=== PATIENT | male | born 1995 | race Caucasian/White ===

== ENCOUNTER 2017-06-09 12:03 | Inpatient (IN) | payer MEDICAID, OTHER ==
[~2017-06-09] VITALS: Ht 172.7 cm; Wt 58.7 kg
[2017-06-09 12:42] LABS: BASOPHILS % (AUTO) 0.3 % (0.0-2.0); EOSINOPHILS % (AUTO) 0.9 % (1.0-6.0); HEMOGLOBIN 16.7 g/dL (13.5-17.5); LYMPHOCYTES # (AUTO) 1.2 K/uL (1.0-4.8); LYMPHOCYTES % (AUTO) 18.5 % (22.0-44.0); MEAN CORPUSCULAR HEMOGLOBIN 29.6 pg (26.0-34.0); MEAN CORPUSCULAR HGB CONC 33.4 G/dL (31.0-37.0); MEAN CORPUSCULAR VOLUME 89 fL (80-100); MONOCYTES # (AUTO) 0.7 K/uL (0.1-1.0); MONOCYTES % (AUTO) 10.3 % (2.0-9.0); NEUTROPHILS # (AUTO) 4.6 K/uL (1.8-7.7); PLATELET COUNT (AUTO) 172 K/uL (150-450); RED BLOOD CELL COUNT(AUTO) 5.64 MIL/uL (4.50-5.90); RED CELL DISTRIBUTION WIDTH 13.6 % (11.5-14.5); WHITE BLOOD COUNT (AUTO) 6.6 K/uL (4.5-11.0)
[2017-06-09 12:50] LABS: ANION GAP 6 mmol/L (8-16); CALCIUM, TOTAL 9.2 mg/dL (8.8-10.5); CARBON DIOXIDE 31 mmol/L (22-29); CHLORIDE 105 mmol/L (98-107); CREATININE 0.95 mg/dL (0.60-1.30); GLOMERULAR FILTR. RATE CALC > 60 mL/min (>60); POTASSIUM 4.1 mmol/L (3.5-5.1); SODIUM SERUM 142 mmol/L (136-145); UREA NITROGEN, BLOOD 13 mg/dL (7-18)
[2017-06-09 12:58] LABS: ALANINE AMINOTRANSFERASE 21 U/L (12-78); ALBUMIN 4.4 g/dL (3.4-5.0); ASPARTATE AMINOTRANSFERASE 22 U/L (15-37); BILIRUBIN,TOTAL 0.3 mg/dL (0.1-1.0); TOTAL PROTEIN, SERUM 7.6 g/dL (6.4-8.2)
[2017-06-09] MEDS ORDERED: HALOPERIDOL 5 MG TABLET PO ONE (15:00)
[2017-06-09] MEDS ORDERED: LORazepam 2 MG TABLET PO ONE (15:00)
[2017-06-09] MEDS ORDERED: HALOPERIDOL 5 MG TABLET PO PRN (15:30)
[2017-06-09] MEDS ORDERED: ZOLPIDEM TARTRATE 10 MG TABLET PO PRN (15:30)
[2017-06-09] MEDS ORDERED: LORazepam 2 MG TABLET PO PRN (15:30)
[2017-06-09 20:33] VITALS: BP 108/66
[2017-06-10 08:00] VITALS: BP 116/69
[2017-06-10] MEDS ORDERED: BENZOCAINE/MENTHOL LOZENGE [8 LOZENGES/PACKET] MM PRN (09:00)
[2017-06-10] MEDS ORDERED: MAGNESIUM HYDROXIDE SUSPENSION 30 ML UDCUP PO PRN (09:00)
[2017-06-10] MEDS ORDERED: MAG HYDROX/AL HYDROX/SIMETH ES 30 ML SUSPENSION UDCUP PO PRN (09:00)
[2017-06-10] MEDS ORDERED: CloNIDine HCL 0.1 MG TABLET PO PRN (09:00)
[2017-06-10] MEDS ORDERED: ACETAMINOPHEN 325 MG TABLET PO PRN (09:00)
[2017-06-10] MEDS ORDERED: PETROLATUM,WHITE 71 GM JELLY TP PRN (09:00)
[2017-06-10] MEDS ORDERED: ONDANSETRON HCL 4 MG TABLET PO PRN (09:00)
[2017-06-10] MEDS ORDERED: LOPERAMIDE HCL 2 MG CAPSULE PO PRN (09:00)
[2017-06-10] MEDS ORDERED: IBUPROFEN 600 MG TABLET PO PRN (09:00)
[2017-06-10] MEDS ORDERED: ALBUTEROL SULFATE HFA 90 MCG/PUFF 8 GM INHALER IH PRN (09:00)
[2017-06-10] MEDS ORDERED: BACITRACIN 28.4 GM OINTMENT TP PRN (09:00)
[2017-06-10] MEDS: RisperiDONE 0.5 MG TABLET PO SCH ×2 (14:26→20:54)
[2017-06-10 16:58] VITALS: BP 116/68
[2017-06-11 06:27] VITALS: BP 120/72
[2017-06-11] MEDS: RisperiDONE 0.5 MG TABLET PO SCH ×2 (08:25→20:54)
[2017-06-11 08:30] VITALS: BP 117/74
[2017-06-11 16:52] VITALS: BP 98/59
[2017-06-12 07:00] VITALS: BP 110/65
[2017-06-12 08:00] VITALS: BP 121/75
[2017-06-12] MEDS: RisperiDONE 0.5 MG TABLET PO SCH (08:25)
[2017-06-12] MEDS ORDERED: RISP.5 PO (12:56)
== END 2017-06-12 16:00 | disposition home or self-care (01) | DRG 750 ==
LOC: EMS 12:04 → 3EI 19:19
DX: F20.0 Paranoid schizophrenia (principal); R45.851 Suicidal ideations; F12.10 Cannabis abuse, uncomplicated; Z72.0 Tobacco use
CPT/HCPCS: 99285; G0480

== ENCOUNTER 2017-08-22 13:12 | Inpatient (IN) | payer MEDICAID, OTHER ==
[~2017-08-22] VITALS: Ht 172.7 cm; Wt 60.8 kg
[~2017-08-22 13:12] MED LIST: RISP.5 PO
[2017-08-22] MEDS ORDERED: HALOPERIDOL LACTATE 5 MG/ML VIAL IM ONE (15:15)
[2017-08-22] MEDS ORDERED: LORazepam 2 MG/ML VIAL IM ONE (15:15)
[2017-08-22] MEDS ORDERED: DiphenhydrAMINE HCL 50 MG/ML VIAL IM ONE (15:15)
[2017-08-22 16:06] LABS: BASOPHILS % (AUTO) 0.4 % (0.0-2.0); EOSINOPHILS % (AUTO) 1.6 % (1.0-6.0); HEMATOCRIT 41.5 % (41-53); HEMOGLOBIN 14.2 g/dL (13.5-17.5); LYMPHOCYTES # (AUTO) 1.1 K/uL (1.0-4.8); LYMPHOCYTES % (AUTO) 17.4 % (22.0-44.0); MEAN CORPUSCULAR HEMOGLOBIN 30.3 pg (26.0-34.0); MEAN CORPUSCULAR HGB CONC 34.3 G/dL (31.0-37.0); MEAN CORPUSCULAR VOLUME 89 fL (80-100); MONOCYTES # (AUTO) 0.8 K/uL (0.1-1.0); MONOCYTES % (AUTO) 13.2 % (2.0-9.0); NEUTROPHILS # (AUTO) 4.2 K/uL (1.8-7.7); NEUTROPHILS % (AUTO) 67.4 % (40.0-70.0); PLATELET COUNT (AUTO) 174 K/uL (150-450); RED BLOOD CELL COUNT(AUTO) 4.69 MIL/uL (4.50-5.90); RED CELL DISTRIBUTION WIDTH 13.5 % (11.5-14.5); WHITE BLOOD COUNT (AUTO) 6.3 K/uL (4.5-11.0)
[2017-08-22 16:28] LABS: ANION GAP 5 mmol/L (8-16); CALCIUM, TOTAL 8.4 mg/dL (8.8-10.5); CARBON DIOXIDE 29 mmol/L (22-29); CHLORIDE 106 mmol/L (98-107); CREATININE 0.98 mg/dL (0.60-1.30); GLOMERULAR FILTR. RATE CALC > 60 mL/min (>60); POTASSIUM 3.8 mmol/L (3.5-5.1); SODIUM SERUM 140 mmol/L (136-145); UREA NITROGEN, BLOOD 12 mg/dL (7-18)
[2017-08-22 16:36] LABS: ALANINE AMINOTRANSFERASE 19 U/L (12-78); ALBUMIN 3.7 g/dL (3.4-5.0); ASPARTATE AMINOTRANSFERASE 21 U/L (15-37); BILIRUBIN,TOTAL 0.2 mg/dL (0.1-1.0); TOTAL PROTEIN, SERUM 6.6 g/dL (6.4-8.2)
[2017-08-22] MEDS ORDERED: HALOPERIDOL 5 MG TABLET PO PRN (20:45)
[2017-08-22] MEDS ORDERED: LORazepam 2 MG TABLET PO PRN (20:45)
[2017-08-22] MEDS ORDERED: ZOLPIDEM TARTRATE 10 MG TABLET PO PRN (20:45)
[2017-08-22 21:49] LABS: CHOL/HDL RATIO 3.1 (4.2-7.3)
[2017-08-23 08:07] LABS: APPEARANCE,URINE CLEAR (CLEAR); GLUCOSE, URINE (UA) NEGATIVE (NEGATIVE); KETONES,URINE NEGATIVE (NEGATIVE); LEUKOCYTE ESTERASE ,URINE NEGATIVE (NEGATIVE); OCCULT BLOOD,URINE NEGATIVE (NEGATIVE); PROTEIN,URINE NEGATIVE (NEGATIVE)
[2017-08-23 08:08] LABS: ADD UA MICROSCOPIC NO
[2017-08-23 21:40] VITALS: BP 116/63
[2017-08-24 08:24] VITALS: BP 118/71
[2017-08-24] MEDS: RisperiDONE 0.5 MG TABLET PO SCH (21:43)
[2017-08-24] MEDS ORDERED: IBUPROFEN 600 MG TABLET PO PRN (21:45)
[2017-08-24] MEDS ORDERED: ACETAMINOPHEN 325 MG TABLET PO PRN (21:45)
[2017-08-25] VITALS: BP 109/61
[2017-08-25 08:19] VITALS: BP 128/72
[2017-08-25] MEDS: RisperiDONE 0.5 MG TABLET PO SCH ×2 (09:21→20:15)
[2017-08-25 16:39] VITALS: BP 106/63
[2017-08-25 21:27] VITALS: BP 127/60
[2017-08-26 06:55] VITALS: BP 123/77
[2017-08-26] MEDS: RisperiDONE 0.5 MG TABLET PO SCH ×2 (08:29→20:07)
[2017-08-26 08:34] VITALS: BP 108/65
[2017-08-26 16:32] VITALS: BP 113/72
[2017-08-27 06:30] VITALS: BP 112/68
[2017-08-27] MEDS: RisperiDONE 0.5 MG TABLET PO SCH ×2 (08:10→20:26)
[2017-08-27] MEDS: SERTRALINE HCL 50 MG TABLET PO SCH (08:10)
[2017-08-27 08:47] VITALS: BP 117/65
[2017-08-27 16:33] VITALS: BP 121/74
[2017-08-28 05:18] VITALS: BP 117/72
[2017-08-28 08:16] VITALS: BP 121/82
[2017-08-28] MEDS: SERTRALINE HCL 50 MG TABLET PO SCH (08:55)
[2017-08-28] MEDS: RisperiDONE 0.5 MG TABLET PO SCH (08:55)
[2017-08-28] MEDS ORDERED: SERT50TA12 PO (12:05)
== END 2017-08-28 14:25 | disposition home or self-care (01) | DRG 750 ==
LOC: EMS 13:13 → EEVIPCON 13:13 → AHU 08-23 20:20 → B2S 08-24 21:02
PROVIDERS: ADMIT Psychiatry & Neurology Child & Adolescent Psychiatry; ATTEND Psychiatry & Neurology Child & Adolescent Psychiatry
DX: F20.0 Paranoid schizophrenia (principal); R00.1 Bradycardia, unspecified; F12.10 Cannabis abuse, uncomplicated; Z79.899 Other long term (current) drug therapy; Z72.0 Tobacco use
CPT/HCPCS: 96372; 99285; G0480

== ENCOUNTER 2017-08-31 22:59 | Inpatient (IN) | payer MEDICAID, OTHER ==
[~2017-08-31] VITALS: Ht 172.7 cm; Wt 62.2 kg
[~2017-08-31 22:59] MED LIST changes: +SERT50TA12 PO
[2017-08-31 23:26] LABS: BASOPHILS # (AUTO) 0.03 K/uL (0.00-0.20); BASOPHILS % (AUTO) 0.3 % (0.0-2.0); EOSINOPHILS # (AUTO) 0.16 K/uL (0.00-0.70); EOSINOPHILS % (AUTO) 1.79 % (1.0-6.0); HEMATOCRIT 44.1 % (41-53); LYMPHOCYTES # (AUTO) 1.8 K/uL (1.0-4.8); LYMPHOCYTES % (AUTO) 20.8 % (22.0-44.0); MEAN CORPUSCULAR HEMOGLOBIN 30.2 pg (26.0-34.0); MEAN CORPUSCULAR HGB CONC 34.1 G/dL (31.0-37.0); MEAN CORPUSCULAR VOLUME 89 fL (80-100); MONOCYTES % (AUTO) 11.4 % (2.0-9.0); NEUTROPHILS # (AUTO) 5.8 K/uL (1.8-7.7); NEUTROPHILS % (AUTO) 65.7 % (40.0-70.0); PLATELET COUNT (AUTO) 167 K/uL (150-450); RED BLOOD CELL COUNT(AUTO) 4.98 MIL/uL (4.50-5.90); RED CELL DISTRIBUTION WIDTH 13.4 % (11.5-14.5); WHITE BLOOD COUNT (AUTO) 8.8 K/uL (4.5-11.0)
[2017-08-31 23:33] LABS: ANION GAP 8 mmol/L (8-16); CALCIUM, TOTAL 8.7 mg/dL (8.8-10.5); CARBON DIOXIDE 27 mmol/L (22-29); CHLORIDE 104 mmol/L (98-107); GLOMERULAR FILTR. RATE CALC > 60 mL/min (>60); POTASSIUM 3.3 mmol/L (3.5-5.1); SODIUM SERUM 139 mmol/L (136-145); UREA NITROGEN, BLOOD 10 mg/dL (7-18)
[2017-08-31 23:38] LABS: ALANINE AMINOTRANSFERASE 21 U/L (12-78); ASPARTATE AMINOTRANSFERASE 17 U/L (15-37); BILIRUBIN,TOTAL 0.2 mg/dL (0.1-1.0); TOTAL PROTEIN, SERUM 6.9 g/dL (6.4-8.2)
[2017-09-01] MEDS ORDERED: HALOPERIDOL 5 MG TABLET PO PRN (01:00)
[2017-09-01] MEDS ORDERED: POTASSIUM CHLORIDE 10% 40 MEQ/30 ML LIQUID UDCUP PO ONE (01:45)
[2017-09-01 02:25] LABS: APPEARANCE,URINE CLEAR (CLEAR); GLUCOSE, URINE (UA) NEGATIVE (NEGATIVE); KETONES,URINE NEGATIVE (NEGATIVE); LEUKOCYTE ESTERASE ,URINE NEGATIVE (NEGATIVE); OCCULT BLOOD,URINE NEGATIVE (NEGATIVE); PROTEIN,URINE NEGATIVE (NEGATIVE)
[2017-09-01 02:28] LABS: ADD UA MICROSCOPIC NO
[2017-09-01 03:00] VITALS: BP 112/71
[2017-09-01] MEDS ORDERED: INFLUENZA VIRUS VACCINE QVS 2017-18 (3YR+)/PF 60 MCG/0.5 ML SYRINGE IM ONE (05:30)
[2017-09-01 08:47] VITALS: BP 114/72
[2017-09-01 09:31] LABS: CHOL/HDL RATIO 3.1 (4.2-7.3)
[2017-09-01] MEDS ORDERED: POTASSIUM CHLORIDE 20 MEQ ER TABLET PO ONE (10:00)
[2017-09-01] MEDS: LORazepam 2 MG TABLET PO PRN (10:12)
[2017-09-01] MEDS: SERTRALINE HCL 50 MG TABLET PO SCH (12:02)
[2017-09-01] MEDS: RisperiDONE 0.5 MG TABLET PO SCH ×2 (12:02→20:21)
[2017-09-01 16:00] VITALS: BP 117/70
[2017-09-02 06:10] VITALS: BP 106/59
[2017-09-02 08:23] VITALS: BP 110/65
[2017-09-02] MEDS: SERTRALINE HCL 50 MG TABLET PO SCH (09:04)
[2017-09-02] MEDS: RisperiDONE 0.5 MG TABLET PO SCH ×2 (09:04→20:20)
[2017-09-02 09:10] LABS: ANION GAP 6 mmol/L (8-16); CALCIUM, TOTAL 9.1 mg/dL (8.8-10.5); CARBON DIOXIDE 33 mmol/L (22-29); CHLORIDE 102 mmol/L (98-107); CREATININE 1.03 mg/dL (0.60-1.30); GLOMERULAR FILTR. RATE CALC > 60 mL/min (>60); POTASSIUM 3.8 mmol/L (3.5-5.1); SODIUM SERUM 141 mmol/L (136-145); UREA NITROGEN, BLOOD 12 mg/dL (7-18)
[2017-09-02 16:00] VITALS: BP 118/65
[2017-09-02] MEDS: LORazepam 2 MG TABLET PO PRN ×2 (16:18→20:20)
[2017-09-02] MEDS: ZOLPIDEM TARTRATE 10 MG TABLET PO PRN (20:20)
[2017-09-03 00:35] VITALS: BP 106/64
[2017-09-03 08:30] VITALS: BP 124/72
[2017-09-03] MEDS: SERTRALINE HCL 50 MG TABLET PO SCH (09:04)
[2017-09-03] MEDS: RisperiDONE 0.5 MG TABLET PO SCH ×2 (09:04→20:28)
[2017-09-03] MEDS: LORazepam 2 MG TABLET PO PRN ×3 (09:04→20:28)
[2017-09-03 16:19] VITALS: BP 122/66
[2017-09-03] MEDS: ZOLPIDEM TARTRATE 10 MG TABLET PO PRN (20:28)
[2017-09-04 07:10] VITALS: BP 109/75
[2017-09-04 08:12] VITALS: BP 125/70
[2017-09-04] MEDS: SERTRALINE HCL 50 MG TABLET PO SCH (09:08)
[2017-09-04] MEDS: RisperiDONE 0.5 MG TABLET PO SCH (09:08)
[2017-09-04] MEDS: LORazepam 2 MG TABLET PO PRN (09:08)
== END 2017-09-04 20:57 | disposition home or self-care (01) | DRG 750 ==
LOC: EMS 23:00 → B3A 09-01 01:46
PROVIDERS: ADMIT Psychiatry & Neurology Child & Adolescent Psychiatry; ATTEND Psychiatry & Neurology Child & Adolescent Psychiatry
DX: F20.0 Paranoid schizophrenia (principal); E78.5 Hyperlipidemia, unspecified; E87.6 Hypokalemia; F12.90 Cannabis use, unspecified, uncomplicated; F17.210 Nicotine dependence, cigarettes, uncomplicated; F41.9 Anxiety disorder, unspecified; Z79.899 Other long term (current) drug therapy
CPT/HCPCS: 87081; 90471; 99285; G0480

== ENCOUNTER 2019-04-26 01:00 | Emergency (ER) | payer MEDICAID, OTHER ==
[~2019-04-26] VITALS: Ht 175.3 cm; Wt 66.4 kg
[2019-04-26] MEDS ORDERED: PERMETHRIN 5% 60 GM CREAM TP ONE (02:30)
[2019-04-26 02:45] VITALS: BP 116/74
== END 2019-04-26 02:45 | disposition home or self-care (01) ==
LOC: EMS 01:02
DX: B86 Scabies (principal); F20.9 Schizophrenia, unspecified; F17.210 Nicotine dependence, cigarettes, uncomplicated; F12.90 Cannabis use, unspecified, uncomplicated; Z79.899 Other long term (current) drug therapy
CPT/HCPCS: 99406

== ENCOUNTER 2020-03-29 23:35 | Inpatient (IN) | payer MEDICAID, OTHER ==
[~2020-03-29] VITALS: Ht 175.3 cm; Wt 72.5 kg
[2020-03-30 00:02] LABS: BASOPHILS % (AUTO) 0.2 % (0.0-2.0); EOSINOPHILS % (AUTO) 0.1 % (1.0-6.0); HEMATOCRIT 52.9 % (41-53); HEMOGLOBIN 17.6 g/dL (13.5-17.5); LYMPHOCYTES # (AUTO) 0.8 K/uL (1.0-4.8); LYMPHOCYTES % (AUTO) 9.5 % (22.0-44.0); MEAN CORPUSCULAR HEMOGLOBIN 29.2 pg (26.0-34.0); MEAN CORPUSCULAR HGB CONC 33.4 G/dL (31.0-37.0); MEAN CORPUSCULAR VOLUME 88 fL (80-100); MONOCYTES # (AUTO) 0.6 K/uL (0.1-1.0); MONOCYTES % (AUTO) 7.5 % (2.0-9.0); NEUTROPHILS # (AUTO) 6.9 K/uL (1.8-7.7); NEUTROPHILS % (AUTO) 82.7 % (40.0-70.0); PLATELET COUNT (AUTO) 207 K/uL (150-450); RED BLOOD CELL COUNT(AUTO) 6.03 MIL/uL (4.50-5.90)
[2020-03-30 00:10] LABS: ANION GAP 15 mmol/L (8-16); CALCIUM, TOTAL 9.1 mg/dL (8.8-10.5); CARBON DIOXIDE 25 mmol/L (22-29); CHLORIDE 101 mmol/L (98-107); GLOMERULAR FILTR. RATE CALC > 60 mL/min (>60); GLUCOSE,RANDOM 128 mg/dL (70-110); POTASSIUM 3.3 mmol/L (3.5-5.1); SODIUM SERUM 141 mmol/L (136-145); UREA NITROGEN, BLOOD 13 mg/dL (7-18)
[2020-03-30 00:16] LABS: ALANINE AMINOTRANSFERASE 24 U/L (12-78); ALKALINE PHOSPHATASE 99 U/L (46-116); ASPARTATE AMINOTRANSFERASE 20 U/L (15-37); BILIRUBIN,TOTAL 0.4 mg/dL (0.1-1.0); TOTAL PROTEIN, SERUM 8.7 g/dL (6.4-8.2)
[2020-03-30 00:59] LABS: AMPHET/METH SCREEN,URINE POSITIVE (NEGATIVE); BARBITURATE SCREEN, URINE NEGATIVE (NEGATIVE); BENZODIAZEPINES SCREEN,URINE NEGATIVE (NEGATIVE); CANNABINOID SCREEN,URINE POSITIVE (NEGATIVE); COCAINE SCREEN,URINE NEGATIVE (NEGATIVE); METHADONE SCREEN, URINE NEGATIVE (NEGATIVE); OPIATE SCREEN,URINE NEGATIVE (NEGATIVE)
[2020-03-30 01:00] LABS: PHENCYCLIDINE SCREEN,URINE NEGATIVE (NEGATIVE)
[2020-03-30] MEDS ORDERED: POTASSIUM CHLORIDE 20 MEQ ER TABLET PO ONE ×2 (01:15→17:00)
[2020-03-30] MEDS ORDERED: HALOPERIDOL 5 MG TABLET PO PRN (03:00)
[2020-03-30 04:05] LABS: APPEARANCE,URINE CLEAR (CLEAR); BILIRUBIN,URINE NEGATIVE (NEGATIVE); GLUCOSE, URINE (UA) NEGATIVE (NEGATIVE); KETONES,URINE NEGATIVE (NEGATIVE); LEUKOCYTE ESTERASE ,URINE NEGATIVE (NEGATIVE); NITRATE,URINE NEGATIVE (NEGATIVE); OCCULT BLOOD,URINE NEGATIVE (NEGATIVE); PH,URINE 6.5 (5.0-8.0); PROTEIN,URINE NEGATIVE (NEGATIVE); UROBILINOGEN,URINE 0.2 mg/dL (<=1.0)
[2020-03-30 08:37] VITALS: BP 135/80
[2020-03-30] MEDS: RisperiDONE 2 MG TABLET PO SCH ×2 (09:01→16:53)
[2020-03-30] MEDS: SERTRALINE HCL 100 MG TABLET PO SCH (09:01)
[2020-03-30] MEDS: LORazepam 2 MG TABLET PO PRN (09:01)
[2020-03-30 17:14] VITALS: BP 121/60
[2020-03-31 07:27] LABS: CHOL/HDL RATIO 4.3 (4.2-7.3); POTASSIUM 4.1 mmol/L (3.5-5.1)
[2020-03-31] MEDS: SERTRALINE HCL 100 MG TABLET PO SCH (09:10)
[2020-03-31] MEDS: RisperiDONE 2 MG TABLET PO SCH ×2 (09:10→16:25)
[2020-03-31 10:13] VITALS: BP 131/83
[2020-03-31 17:45] VITALS: BP 117/64
[2020-04-01] MEDS: RisperiDONE 2 MG TABLET PO SCH ×2 (08:53→16:13)
[2020-04-01] MEDS: SERTRALINE HCL 100 MG TABLET PO SCH (08:53)
[2020-04-01 09:49] VITALS: BP 143/100
[2020-04-01] MEDS: LORazepam 2 MG TABLET PO PRN (16:13)
[2020-04-01 16:18] VITALS: BP 124/67
[2020-04-01] MEDS: ZOLPIDEM TARTRATE 10 MG TABLET PO PRN (20:38)
[2020-04-02 08:30] VITALS: BP 144/96
[2020-04-02] MEDS: SERTRALINE HCL 100 MG TABLET PO SCH (09:05)
[2020-04-02] MEDS: RisperiDONE 2 MG TABLET PO SCH (09:05)
[2020-04-02] MEDS: RisperiDONE 3 MG TABLET PO SCH (16:15)
[2020-04-02 16:30] VITALS: BP 139/65
[2020-04-02] MEDS: LORazepam 2 MG TABLET PO PRN (18:18)
[2020-04-03] MEDS: ZOLPIDEM TARTRATE 10 MG TABLET PO PRN (02:07)
[2020-04-03 08:00] VITALS: BP 138/71
[2020-04-03] MEDS: SERTRALINE HCL 100 MG TABLET PO SCH (08:42)
[2020-04-03] MEDS: RisperiDONE 3 MG TABLET PO SCH ×2 (08:42→16:53)
[2020-04-03 16:32] VITALS: BP 124/63
[2020-04-04] MEDS: SERTRALINE HCL 100 MG TABLET PO SCH (09:10)
[2020-04-04] MEDS: RisperiDONE 3 MG TABLET PO SCH (09:10)
[2020-04-04 10:32] VITALS: BP 122/78
== END 2020-04-04 13:37 | disposition home or self-care (01) | DRG 885 ==
LOC: EMS 23:35 → 3EI 03-30 04:00
PROVIDERS: ADMIT Psychiatry & Neurology Psychiatry; ATTEND Psychiatry & Neurology Psychiatry
DX: F20.9 Schizophrenia, unspecified (principal); R45.851 Suicidal ideations; Y90.8 Blood alcohol level of 240 mg/100 ml or more; E87.6 Hypokalemia; F10.129 Alcohol abuse with intoxication, unspecified; F15.10 Other stimulant abuse, uncomplicated; F12.90 Cannabis use, unspecified, uncomplicated; F17.210 Nicotine dependence, cigarettes, uncomplicated; Z78.1 Physical restraint status; Z71.41 Alcohol abuse counseling and surveillance of alcoholic; Z71.51 Drug abuse counseling and surveillance of drug abuser
CPT/HCPCS: 84132; G0480

== ENCOUNTER 2022-04-02 06:40 | Emergency (ER) | payer MEDICAID, OTHER ==
[~2022-04-02] VITALS: Ht 175.3 cm; Wt 66.4 kg
[~2022-04-02 06:40] MED LIST changes: -RISP.5 PO; +RISP0.5T39 PO; +SERT-158 PO; -SERT50TA12 PO
[2022-04-02 06:44] VITALS: BP 114/73
[2022-04-02] MEDS ORDERED: RisperiDONE 1 MG TABLET PO ONE (07:15)
[2022-04-02 07:35] LABS: BASOPHILS % (AUTO) 0.9 % (0.0-2.0); EOSINOPHILS % (AUTO) 4.3 % (1.0-6.0); HEMOGLOBIN 15.2 g/dL (13.5-17.5); LYMPHOCYTES # (AUTO) 1.7 K/uL (1.0-4.8); LYMPHOCYTES % (AUTO) 26.1 % (22.0-44.0); MEAN CORPUSCULAR HEMOGLOBIN 30.6 pg (26.0-34.0); MEAN CORPUSCULAR HGB CONC 34.5 G/dL (31.0-37.0); MEAN CORPUSCULAR VOLUME 89 fL (80-100); MONOCYTES # (AUTO) 1.3 K/uL (0.1-1.0); MONOCYTES % (AUTO) 19.8 % (2.0-9.0); NEUTROPHILS # (AUTO) 3.1 K/uL (1.8-7.7); NEUTROPHILS % (AUTO) 48.9 % (40.0-70.0); PLATELET COUNT (AUTO) 256 K/uL (150-450); RED BLOOD CELL COUNT(AUTO) 4.96 MIL/uL (4.50-5.90); RED CELL DISTRIBUTION WIDTH 12.8 % (11.5-14.5)
[2022-04-02 07:41] LABS: ANION GAP 6 mmol/L (8-16); CALCIUM, TOTAL 8.6 mg/dL (8.8-10.5); CARBON DIOXIDE 27 mmol/L (22-29); CHLORIDE 103 mmol/L (98-107); CREATININE 0.76 mg/dL (0.60-1.30); GLOMERULAR FILTR. RATE CALC > 60 mL/min (>60); GLUCOSE,RANDOM 91 mg/dL (70-110); SODIUM SERUM 136 mmol/L (136-145); UREA NITROGEN, BLOOD 12 mg/dL (7-18)
[2022-04-02 07:46] LABS: ALANINE AMINOTRANSFERASE 40 U/L (12-78); ALBUMIN 3.5 g/dL (3.4-5.0); ALKALINE PHOSPHATASE 88 U/L (46-116); ASPARTATE AMINOTRANSFERASE 23 U/L (15-37); BILIRUBIN,TOTAL 0.3 mg/dL (0.1-1.0); TOTAL PROTEIN, SERUM 6.9 g/dL (6.4-8.2)
[2022-04-02 07:46] LABS: GLUCOMETER DEV NAME(LOC) ERT.5; GLUCOSE,POINT OF CARE 86 MG/DL (70-110)
[2022-04-02] MEDS ORDERED: DIPH25TA20 PO (08:32)
[2022-04-02] MEDS ORDERED: RISP2TAB76 PO (08:32)
== END 2022-04-02 10:11 | disposition home or self-care (01) ==
LOC: EMS 06:41
DX: F20.0 Paranoid schizophrenia (principal); R45.850 Homicidal ideations; F17.210 Nicotine dependence, cigarettes, uncomplicated; F12.90 Cannabis use, unspecified, uncomplicated
CPT/HCPCS: 36415; 80053; 82962; 85025; 99284; G0480

== ENCOUNTER 2022-04-13 19:17 | Emergency (ER) | payer OTHER ==
[~2022-04-13] VITALS: Ht 175.3 cm; Wt 66.6 kg
[~2022-04-13 19:17] MED LIST changes: +DIPH25TA20 PO; +RISP2TAB76 PO
[2022-04-13] MEDS ORDERED: FentaNYL CITRATE PF 100 MCG/2 ML VIAL IVP ONE (20:00)
[2022-04-13] MEDS ORDERED: MIDAZOLAM HCL 5 MG/ML VIAL IVP ONE (20:00)
[2022-04-13] MEDS ORDERED: NALOXONE HCL 1 MG/ML 2 ML SYRINGE ONE (20:55)
[2022-04-13] MEDS ORDERED: FLUMAZENIL 0.1 MG/ML 5 ML VIAL IVP ONE (20:55)
[2022-04-14 03:45] VITALS: BP 127/84
== END 2022-04-14 04:10 | disposition home or self-care (01) ==
LOC: EMS 19:26
DX: S43.085A Other dislocation of left shoulder joint, initial encounter (principal); F20.9 Schizophrenia, unspecified; F17.210 Nicotine dependence, cigarettes, uncomplicated; F12.90 Cannabis use, unspecified, uncomplicated; Z59.00 Homelessness unspecified; Z86.59 Personal history of other mental and behavioral disorders; X58.XXXA Exposure to other specified factors, initial encounter; Y93.89 Activity, other specified; Y92.89 Other specified places as the place of occurrence of the external cause; Y99.8 Other external cause status
CPT/HCPCS: 23650; 73030; 96374; 96375; 99152; 99153; 99285; J2250; J3010; J2310; J3490

== ENCOUNTER 2022-04-26 20:56 | Emergency (ER) | payer OTHER ==
[~2022-04-26] VITALS: Ht 167.6 cm; Wt 65.9 kg
[2022-04-27 02:03] VITALS: BP 132/75
== END 2022-04-27 03:21 | disposition home or self-care (01) ==
LOC: EMS 20:57
DX: M25.512 Pain in left shoulder (principal); F20.9 Schizophrenia, unspecified; F12.90 Cannabis use, unspecified, uncomplicated; F17.210 Nicotine dependence, cigarettes, uncomplicated; Z86.59 Personal history of other mental and behavioral disorders
CPT/HCPCS: 99283